=== PATIENT | male | born 1950 ===

== ENCOUNTER 2019-05-29 07:51 | Inpatient (IN) | payer OTHER ==
[~2019-05-29] VITALS: Ht 172.7 cm; Wt 88.9 kg
[2019-05-29] MEDS ORDERED: ROSUVASTATIN CA10 MG PO (08:15)
[2019-05-29] MEDS ORDERED: CORGARD20 M1 PO (08:15)
[2019-05-29] MEDS ORDERED: SERTRALINE HCL PO (08:16)
[2019-05-29] MEDS ORDERED: FEBUXOSTAT40 MG PO (08:17)
[2019-05-29] MEDS ORDERED: ALLERGY RELIEF10 M1 PO (08:17)
[2019-05-29] MEDS ORDERED: GABAPENTIN PO (08:18)
[2019-05-29] MEDS ORDERED: LUCENTIS0.3 MG/0.1 PO (08:18)
[2019-05-29] MEDS ORDERED: ROPINIROLE HCL4 MG PO (08:19)
[2019-05-29] MEDS ORDERED: FLUNISOLIDE (08:19)
--- NOTE | 2019-05-29 08:19 | NUR ---
SE RECIBE AL PACIENTE ALERTA Y ORIENTADO EN ALMA ROSA ERMA ESFERAS. PACIENTE CON TOS CONTINUA, SATURANDO A 95% Y CON MUCHO DOLOR ABDOMINAL.
--- NOTE | 2019-05-29 09:08 | NUR ---
PACIENTE ALERTA Y ORIENTADO EN ALMA ROSA ERMA ESFERAS EN COMPANIA DE FAMILIAR. SE ORIENTA A PACIENTE SOBRE PROCEDIMIENTO Y TX, REFIERE ENTENDER. SE EXTRAE MUESTRAS DE LABORATORIO CON MEDIDAS ASEPTICAS Y SE ADMINISTRA MEDICAMENTOS KEVEN ORDEN MEDICA.
--- NOTE | 2019-05-29 13:31 | NUR ---
PACINETE SE ORIENTA SOBRE LA DILIA DE CULTIVOS DE MICHAEL POR 3 Y SE LE ADMINITRA MEDICAMENTO PACIENTE SE MANTIEIEN OBSERVACION EN CONSULTA POR EL DR.LUIS BAKER.
[2019-06-02] MEDS ORDERED: OSEL75CA PO (09:54)
[2019-06-02] MEDS ORDERED: ZITHROMAX500 MG PO (09:54)
== END 2019-06-02 12:52 | disposition home or self-care (01) | DRG 195 ==
LOC: ER 07:51 → SEC-K 14:17 → MEDJ 14:17 → SEC-K 05-30 18:17 → MEDJ 05-30 18:18
PROVIDERS: ADMIT Internal Medicine
PROC: BB24ZZZ Computerized Tomography (CT Scan) of Bilateral Lungs (ICD-10-PCS; principal; 2019-05-29)
PROC: BW40ZZZ Ultrasonography of Abdomen (ICD-10-PCS; 2019-05-29)
PROC: 3E0F7GC Introduction of Other Therapeutic Substance into Respiratory Tract, Via Natural or Artificial Opening (ICD-10-PCS; 2019-05-29)
PROC: 4A033R1 Measurement of Arterial Saturation, Peripheral, Percutaneous Approach (ICD-10-PCS; 2019-05-29)
PROC: 8E0ZXY6 Isolation (ICD-10-PCS; 2019-05-29)
DX: J10.1 Influenza due to other identified influenza virus with other respiratory manifestations (principal); B96.0 Mycoplasma pneumoniae [M. pneumoniae] as the cause of diseases classified elsewhere; I11.9 Hypertensive heart disease without heart failure; K76.0 Fatty (change of) liver, not elsewhere classified; N20.0 Calculus of kidney; R31.29 Other microscopic hematuria